=== PATIENT | female | born 1945 | race Caucasian/White ===

== ENCOUNTER → 2023-05-08 18:25 | Outpatient (REF) | payer OTHER, SELFPAY | LOC: WDC 18:25 | PROVIDERS: ATTENDING PHYSICIAN Nurse Practitioner Adult Health | DX: Z12.31 Encounter for screening mammogram for malignant neoplasm of breast (principal) | CPT/HCPCS: 77063; 77067 ==

== ENCOUNTER → 2023-05-21 10:06 | Outpatient (REF) | payer OTHER, SELFPAY | LOC: WDC 10:06 | PROVIDERS: ATTENDING PHYSICIAN Nurse Practitioner Adult Health | DX: R92.8 Other abnormal and inconclusive findings on diagnostic imaging of breast (principal) | CPT/HCPCS: 76642 ==

== ENCOUNTER 2023-07-27 13:36 | Emergency (ER) | payer OTHER, SELFPAY ==
[2023-07-27 13:46] VITALS: BP 146/81
[2023-07-27 15:54] VITALS: BMI 28.5
--- NOTE | 2023-07-27 15:59 | ED.GENMED ---
History of Present Illness
General
Chief Complaint: Numbness
Source: patient
Exam Limitations: none
Time Seen by Provider: 07/27/23 15:11
Nursing documentation reviewed up to this point in time: agreed with
Travel History
Have you had any contact with someone who has COVID-19?: No
Do you have any symptoms of coronavirus? Fever > 100 degrees, chills, cough, shortness of breath, sore throat, loss of taste or smell, muscle aches, or headache?: No
History of Present Illness
History of Present Illness:
Patient is a 78-year-old female presents to the ER for evaluation of multiple complaints. Patient complains of intermittent sharp pains/numbness in her left lower leg for months yesterday however she noticed constant numbness in her right lower leg
which is why she came to the ER. She also reports for the past several months has been intermittently short of breath and notices intermittent twinges of chest pain. She concepcion not been evaluated by her primary care physician for these complaints. She
does have a history of hyperlipidemia and has been on cholesterol medicine. Patient reports she has been on this medicine for years.
Past History
Past History
ED Past Medical History: Hypercholesterolemia and Other (PNA, Chronic Bronchitis, Suspected MS)
ED Past Surgical History: None
Social History
Tobacco: Non-smoker
Alcohol: None
Personal:
Living: with family
Review of Systems
Review of Systems
Allergies reviewed?: Yes
All Other Systems: ROS reviewed and negative except as documented in HPI and ROS
Constitutional: Reports no symptoms; Denies fever, fatigue or chills
Respiratory: Reports trouble breathing (denies now )
Cardiac: Reports chest pain (denies now )
ABD/GI: Reports no symptoms
: Reports no symptoms
Musculoskeletal: Reports no symptoms
Skin: Reports no symptoms
Neurological: Reports no symptoms
Psychiatric: Reports no symptoms
Phy Exam
General Physical Exam
General Presentation: well appearing
General age: appears stated age
General Skin: warm and dry
General Habitus: normal
General Mental: alert
General Hydration: appears well hydrated
Cardiovascular Exam
Cardiovascular Exam: regular rate/rhythm, no murmur and normal peripheral pulses
Pulmonary Exam
Pulmonary Exam: lungs clear and no respiratory distress
Musculoskeletal Exam
Musculoskeletal Exam: full ROM and other ( no obvious lower extremity mild non specific tenderness to left calf region strong pulses to b/l l/e with intact sensation no obvious swelling to legs no erythema full ROM to legs )
Skin Exam
Skin Exam: normal color and warm/dry
Psychiatric Exam
Psychiatric Exam: normal mood/affect
Course
Orders/Labs/Results
Orders:
Orders
07/27/23 15:55
Complete Blood Count/With Diff Urgent
Comprehensive Metabolic Panel Urgent
Pro-BNP [NT-proBNP] Urgent
Troponin I Urgent
07/27/23 15:59
Chest [CR Chest - 2 Views ] Urgent
Comment:
Reason For Exam: sob
Venous Doppler Lwr Ext Bilat [US Periph Venous LOWER Ext Matthew] Urgent
Comment:
Reason For Exam: pain tinging
07/27/23 17:21
Electrocardiogram (*1) Stat
Reason for Study: Other
Other Reason for Exam: chest pain
EKG- Treatment ONCE
Abnormal Lab Results
07/27/23
15:55
WBC 4.5 L 10^3/uL
(4.8-10.8)
RBC 4.16 L 10^6/uL
(4.20-5.40)
MCH 32.9 H pg
(27.0-31.0)
MPV 10.5 H fL
(7.4-10.4)
Monocytes % 13.3 H %
(1.7-9.3)
BUN 19 H mg/dl
(7-17)
07/27/23 15:55
07/27/23 15:55
Vital Signs
Initial and Last Documented VS:
Initial Vital Signs
Temp Pulse Resp BP Pulse Ox
98.7 F 84 16 146/81 98
07/27/23 13:46 07/27/23 13:46 07/27/23 13:46 07/27/23 13:46 07/27/23 13:46
Last Documented Vital Signs
Temp Pulse Resp BP Pulse Ox
98.7 F 69 17 135/117 98
07/27/23 13:46 07/27/23 16:28 07/27/23 16:28 07/27/23 17:20 07/27/23 16:28
MDM/Problems Addressed
MDM/Problems Addressed:
Patient is a 78-year-old female who presents for a variety of complaints which are not necessarily new. She has had intermittent twinges of pain in the left lower leg with intermittent numbness tingling sensation yesterday however she noticed some
discomfort and intermittent tingling in her right leg which is a prompted her to come to the ER today. She was concerned about clot. This no obvious swelling on exam normal strong pulses normal sensation ultrasounds are negative. When asked
patient reports she has had mild intermittent shortness of breath over the past several months along with twinges of intermittent mild chest pain. She is in no acute distress and has no history of cardiac disease. She is well-appearing vital signs
stable nontachycardic nontachypneic nonhypoxic lungs are clear no acute findings on chest x-ray. No recent fever chills she is afebrile here with a normal white count stable hemoglobin and normal chemistries. I did check troponin and BNP for
complains of intermittent shortness breath chest pain for months however these are negative. As documented she has no cardiac history but does believe she may have seen [place] [facility] years ago will have patient follow-up again with
cardiology. There is no acute concerning findings here in the ER workup. EKG normal sinus rhythm left bundle branch block patient has a history of left bundle branch block seen on previous EKG. She has no risk factors for DVT and with negative
ultrasounds no risk factors and no clinical symptoms or vital signs and physical exam consistent with PE we will hold off any D-dimer. She has had these intermittent for months. She is well-appearing I did review with patient the importance of
logan f/ u with family doctor .
1843: Patient was discharged home previously but radiology made me aware that there is fullness in the right infra hilar region which is nonspecific follow-up CAT scan is recommended. PT notified of ct findings and d/c w/ pt that CT is recommended
and to f/u w/ her doctor.
Chronic conditions affecting care:
high cholesterol
*Radiology
Radiology exam reviewed: radiology read reviewed
*Pulse Oximetry
Patient hypoxic: no
*Critical Care Note
Total Time (30-74mins, 75-104mins- exclusive of procedures): Not Applicable
ED Attending Note
-
Portions of this chart may have been created with voice recognition software.� Occasional wrong word or��sound alike� substitutions may have occurred due to the inherent limitations of voice recognition software.
Discharge Plan
Departure
Patient Disposition: Home (Routine Discharge)
Date of Disposition: 07/27/23
Time of Disposition: 17:13
Patient with high blood pressure during this ER visit?: Yes
Condition: Fair
Covid-19: Not Applicable
Discharge Problem:
paresthesias
Instructions: Paresthesia (DC), BLOOD PRESSURE
Prescriptions:
No Action
atorvastatin 10 MG tablet
10 mg PO DAILY
ascorbic acid (vitamin C) 500 MG capsule
500 mg PO DAILY
buexlvws-[id number]-zhnj fum-folic ac 1 EACH tablet
1 ea PO DAILY
zinc Tablet,Chewable
1 tab PO DAILY
lutein 40 mg Capsule
40 mg PO DAILY
Sutab 1.479-0.188- 0.225 gram Tablet
0 tab PO PER PKG DIR
Vitamin D3
1 tab PO DAILY
prednisone 20 mg tablet
40 mg PO DAILY Qty: 8 0RF
Referrals:
Han Bush CRNP [Family Provider] -
Yonathan Bolivar MD [Active] -
Activity Restrictions/Additional Instructions:
As discussed please follow-up with your family doctor for further evaluation of intermittent numbness and tingling to legs and intermittent discomfort to the legs. Also as discussed please follow-up with cardiology give them a call on Sunday to get
an an appointment for reevaluation of your intermittent shortness of breath and chest pain.
Return if any worsening of symptoms.
Interventions
Interventions:
*Risk Screen - Suicide Last Done: 07/27/23 13:46
*General Assessment Last Done: 07/27/23 13:46
*Neglect/Abuse Screening Last Done: 07/27/23 13:46
ED- Fall Risk Assessment Last Done: 07/27/23 15:53
*Nursing Disposition Last Done: 07/27/23 17:44
ED- Neurological Assessment Last Done: 07/27/23 15:52
Discharge Date and Time
Discharge Date/Time: 07/27/23 17:45
Print Language: KAZAKH
[2023-07-27 16:00] VITALS: BP 90/67
[2023-07-27 16:15] LABS: % Basophils 1.6 % (0-2); % Eosinophils 3.6 % (0-6); % Immature Granulocytes 0.2 % (0-0.5); % Lymphocytes 34.4 % (20.5-51.1); % Monocytes 13.3 % (1.7-9.3); % Neutrophils 46.9 % (42.2-75.2); Absolute Basophils 0.1 10^3/uL (0-0.2); Absolute Eosinophils 0.2 10^3/uL (0-0.7); Absolute Lymphocytes 1.5 10^3/uL (1.2-3.4); Absolute Monocytes 0.6 10^3/uL (0.1-0.6); Absolute Neutrophils 2.1 10^3/uL (1.4-6.5); Hematocrit 40.3 % (37.0-47.0); Hemoglobin 13.7 g/dL (12.0-16.0); Mean Corpuscular Hgb 32.9 pg (27.0-31.0); Mean Corpuscular Volume 96.9 fL (81.0-99.0); Mean Platelet Volume 10.5 fL (7.4-10.4); Nucleated Red Blood Cells % 0 %; Platelet Count 226 10^3/uL (130-400); Red Blood Cell Count 4.16 10^6/uL (4.20-5.40); Red Cell Dist. Width 12.8 % (11.5-14.5); White Blood Cell Count 4.5 10^3/uL (4.8-10.8)
[2023-07-27 16:19] LABS: ALT (SGPT) 20 U/L (0-35); AST (SGOT) 32 U/L (14-36); Albumin 4.2 g/dl (3.5-5.0); Alkaline Phosphatase 92 U/L (38-126); Blood Urea Nitrogen 19 mg/dl (7-17); Calcium 9.7 mg/dl (8.4-10.2); Carbon Dioxide 25 mmol/L (22-30); Chloride 106 mmol/L (98-107); Estimated Creatinine Clearance 49 ml/min; Glucose 92 mg/dl (70-99); Potassium 4.2 mmol/L (3.5-5.1); Sodium 139 mmol/L (135-145); Total Bilirubin 0.9 mg/dl (0.2-1.3); Total Protein 6.9 g/dl (6.3-8.2); eGFR > 60.00
[2023-07-27 16:29] LABS: NT-proBNP 242 pg/ml; Troponin I < 0.012 ng/ml
[2023-07-27 17:20] VITALS: BP 135/117
== END 2023-07-27 17:45 | disposition home or self-care (01) ==
LOC: EMR 13:36
PROVIDERS: Nurse Practitioner; EMERGENCY PHYSICIAN Emergency Medicine; FAMILY PHYSICIAN Nurse Practitioner Adult Health
DX: R20.2 Paresthesia of skin (principal); M79.605 Pain in left leg; M79.604 Pain in right leg; E78.00 Pure hypercholesterolemia, unspecified
CPT/HCPCS: 99285; 71046; 80053; 83880; 84484; 85025; 93005; 93970

== ENCOUNTER → 2023-08-09 13:05 | Outpatient (REF) | payer OTHER, SELFPAY | LOC: RAD 13:05 | PROVIDERS: ATTENDING PHYSICIAN Nurse Practitioner Adult Health | DX: J84.10 Pulmonary fibrosis, unspecified (principal); R93.89 Abnormal findings on diagnostic imaging of other specified body structures | CPT/HCPCS: 71250 ==

== ENCOUNTER → 2023-10-29 09:05 | Outpatient (REF) | payer OTHER, SELFPAY ==
[2023-10-29 11:03] LABS: % Basophils 1.2 % (0-2); % Eosinophils 5.7 % (0-6); % Immature Granulocytes 0.2 % (0-0.5); % Lymphocytes 48.4 % (20.5-51.1); % Monocytes 12.8 % (1.7-9.3); % Neutrophils 31.7 % (42.2-75.2); Absolute Basophils 0.1 10^3/uL (0-0.2); Absolute Eosinophils 0.2 10^3/uL (0-0.7); Absolute Monocytes 0.5 10^3/uL (0.1-0.6); Absolute Neutrophils 1.3 10^3/uL (1.4-6.5); Hematocrit 39.5 % (37.0-47.0); Hemoglobin 13.4 g/dL (12.0-16.0); Mean Corp Hgb Conc. 33.9 g/dL (33.0-37.0); Mean Corpuscular Hgb 32.7 pg (27.0-31.0); Mean Corpuscular Volume 96.3 fL (81.0-99.0); Nucleated Red Blood Cells % 0 %; Platelet Count 225 10^3/uL (130-400); Red Cell Dist. Width 12.5 % (11.5-14.5); White Blood Cell Count 4.1 10^3/uL (4.8-10.8)
[2023-10-29 11:51] LABS: ALT (SGPT) 24 U/L (0-35); AST (SGOT) 31 U/L (14-36); Albumin 4.2 g/dl (3.5-5.0); Alkaline Phosphatase 89 U/L (38-126); Blood Urea Nitrogen 16 mg/dl (7-17); Calcium 9.3 mg/dl (8.4-10.2); Carbon Dioxide 27 mmol/L (22-30); Chloride 107 mmol/L (98-107); Glucose 98 mg/dl (70-99); HDL Cholesterol 56 mg/dl; LDL Cholesterol, Calculated 91 mg/dl; Potassium 4.1 mmol/L (3.5-5.1); Sodium 141 mmol/L (135-145); Total Bilirubin 0.8 mg/dl (0.2-1.3); Total Cholesterol 165 mg/dl (50-199); Total Protein 6.6 g/dl (6.3-8.2); Triglyceride 90 mg/dl (10-149); Very Low Density Lipoprotein 18 mg/dl (0-30); eGFR > 60.00
== END ==
LOC: REG 09:05
PROVIDERS: ATTENDING PHYSICIAN Nurse Practitioner Adult Health
DX: E78.00 Pure hypercholesterolemia, unspecified (principal); J44.9 Chronic obstructive pulmonary disease, unspecified
CPT/HCPCS: 36415; 80053; 80061; 85025

== ENCOUNTER → 2023-11-27 12:52 | Outpatient (REF) | payer OTHER, SELFPAY | LOC: PET 12:52 | PROVIDERS: ATTENDING PHYSICIAN Internal Medicine Cardiovascular Disease | DX: R06.00 Dyspnea, unspecified (principal) | CPT/HCPCS: 78431; A9555; J2785 ==

== ENCOUNTER → 2023-12-07 13:48 | Outpatient (REF) | payer OTHER, SELFPAY | LOC: RCS 13:48 | PROVIDERS: ATTENDING PHYSICIAN Internal Medicine Cardiovascular Disease; FAMILY PHYSICIAN Nurse Practitioner Adult Health | DX: R06.00 Dyspnea, unspecified (principal); I44.7 Left bundle-branch block, unspecified | CPT/HCPCS: 93306 ==

== ENCOUNTER → 2024-01-10 12:36 | Outpatient (REF) | payer OTHER, SELFPAY | LOC: RAD 12:36 | PROVIDERS: ATTENDING PHYSICIAN Nurse Practitioner Adult Health | DX: Z78.0 Asymptomatic menopausal state (principal) | CPT/HCPCS: 77080 ==

== ENCOUNTER → 2024-06-23 14:48 | Outpatient (REF) | payer OTHER, SELFPAY | LOC: WDC 14:48 | PROVIDERS: ATTENDING PHYSICIAN Nurse Practitioner Adult Health | DX: Z12.31 Encounter for screening mammogram for malignant neoplasm of breast (principal) | CPT/HCPCS: 77063; 77067 ==

== ENCOUNTER → 2024-12-19 11:17 | Outpatient (REF) | payer OTHER, SELFPAY ==
[2024-12-19 11:47] LABS: Hematocrit 41.6 % (37.0-47.0); Hemoglobin 13.6 g/dL (12.0-16.0); Mean Corp Hgb Conc. 32.7 g/dL (33.0-37.0); Mean Corpuscular Volume 97.9 fL (81.0-99.0); Platelet Count 236 10^3/uL (130-400); Red Cell Dist. Width 12.7 % (11.5-14.5)
[2024-12-19 12:13] LABS: ALT (SGPT) 21 U/L (0-35); AST (SGOT) 28 U/L (14-36); Albumin 4.4 g/dl (3.5-5.0); Alkaline Phosphatase 87 U/L (38-126); Blood Urea Nitrogen 16 mg/dl (7-17); Calcium 9.6 mg/dl (8.4-10.2); Carbon Dioxide 30 mmol/L (22-30); Chloride 106 mmol/L (98-107); Glucose 93 mg/dl (70-99); HDL Cholesterol 61 mg/dl; LDL Cholesterol, Calculated 94 mg/dl; Potassium 4.0 mmol/L (3.5-5.1); Sodium 142 mmol/L (135-145); Total Protein 7.4 g/dl (6.3-8.2); Very Low Density Lipoprotein 15 mg/dl (0-30); eGFR > 60.00
[2024-12-19 12:41] LABS: Nucleated Red Blood Cells % 0 %
== END ==
LOC: REG 11:17
PROVIDERS: ATTENDING PHYSICIAN Nurse Practitioner Adult Health
DX: Z00.00 Encounter for general adult medical examination without abnormal findings (principal); E78.00 Pure hypercholesterolemia, unspecified; R79.89 Other specified abnormal findings of blood chemistry
CPT/HCPCS: 36415; 80053; 80061; 85025

== ENCOUNTER → 2024-12-29 16:41 | Outpatient (REF) | payer OTHER, SELFPAY | LOC: RAD 16:41 | PROVIDERS: ATTENDING PHYSICIAN Nurse Practitioner Family; FAMILY PHYSICIAN Nurse Practitioner Adult Health | DX: R06.00 Dyspnea, unspecified (principal) | CPT/HCPCS: 71046 ==

== ENCOUNTER 2025-03-07 15:02 | Emergency (ER) | payer OTHER, SELFPAY ==
[2025-03-07 15:03] VITALS: BP 167/80
--- NOTE | 2025-03-07 16:49 | ED.GENMED ---
History of Present Illness
General
Chief Complaint: Abnormal Lab Value
Time Seen by Provider: 03/07/25 16:04
History of Present Illness
History of Present Illness:
Patient is a 79-year-old woman who is otherwise healthy presenting to the emergency department with abnormal EKG. Patient states for 1 year she has had pinprick sensations throughout her chest, palpitations and shortness of breath which she
attributes to her COPD. She initially told nursing that she had dizziness so declined that to me. She called her welding inspector who told her to follow-up cardiology. However her appointment is now scheduled for March 23 so she was advised by
the urgent care. When she arrived to the urgent care a plain EKG. There was some concern so told her to come to the emergency department for further evaluation. At this time patient has no complaints. She is never had exertional chest pain. No
pleuritic pain. No nausea vomiting diaphoresis. No long car rides plane rides hemoptysis or history of blood clots.
Past History
Past History
ED Past Medical History: Hypercholesterolemia and Other (PNA, Chronic Bronchitis, Suspected MS)
ED Past Surgical History: None
Social History
Tobacco: Non-smoker
Alcohol: None
Personal:
Living: with family
Phy Exam
Physical Exam
Physical Exam:
GENERAL: in no acute distress
HEENT: normocephalic, extraocular movements intact, moist oral mucosa
NECK: normal inspection
RESPIRATORY: no respiratory distress, clear to auscultation bilaterally
CARDIOVASCULAR: regular rate and rhythm
ABDOMEN/: soft, non-distended, non-tender to palpation, no rebound or guarding
EXTREMITIES: non-tender, no edema/swelling
NEUROLOGIC: awake and alert, moves all extremities
SKIN: warm
Course
Orders/Labs/Results
Orders:
Orders
03/07/25 15:07
EKG [Electrocardiogram (*1)] Urgent
Reason for Study: Abnormal EKG
EKG- Treatment ONCE
03/07/25 16:54
Basic Metabolic Panel Urgent
Complete Blood Count/With Diff Urgent
Magnesium Urgent
Troponin I Urgent
Abnormal Lab Results
03/07/25
16:54
WBC 3.8 L 10^3/uL
(4.8-10.8)
RBC 3.95 L 10^6/uL
(4.20-5.40)
MCH 31.9 H pg
(27.0-31.0)
MPV 10.5 H fL
(7.4-10.4)
Absolute Lymphs (auto) 1.1 L 10^3/uL
(1.2-3.4)
Monocytes % 14.7 H %
(1.7-9.3)
03/07/25 16:54
03/07/25 16:54
Vital Signs
Initial and Last Documented VS:
Initial Vital Signs
Temp Pulse Resp BP Pulse Ox
97.8 F 86 16 167/80 98
03/07/25 15:03 03/07/25 15:03 03/07/25 15:03 03/07/25 15:03 03/07/25 15:03
Last Documented Vital Signs
Temp Pulse Resp BP Pulse Ox
97.8 F 71 18 135/68 96
03/07/25 15:03 03/07/25 17:00 03/07/25 17:00 03/07/25 17:00 03/07/25 17:00
MDM/Problems Addressed
Differential Diagnosis Includes:
Patient is a 79-year-old presenting to the emergency room with abnormal EKG as well as 1 year of pinprick sensation to her chest, palpitations. On arrival vitals are notable for hypertension and exam is otherwise reassuring. Differential consist
of metabolic derangement versus cardiac arrhythmia versus atypical ACS versus COPD exacerbation though less likely. Will check blood work. Magnesium and troponin. EKG per my interpretation normal sinus rhythm.
*Pulse Oximetry
SaO2: 96
Oxygen Mode of Delivery: Room air
Patient hypoxic: no
*Critical Care Note
Total Time (30-74mins, 75-104mins- exclusive of procedures): Not Applicable
Update Note
Update Note:
Blood work reassuring. Patient remains asymptomatic. Will discharge at this time with cardiology follow-up.
ED Attending Note
-
Portions of this chart may have been created with voice recognition software.� Occasional wrong word or��sound alike� substitutions may have occurred due to the inherent limitations of voice recognition software.
Discharge Plan
Departure
Patient Disposition: Home (Routine Discharge)
Date of Disposition: 03/07/25
Time of Disposition: 17:39
Patient with high blood pressure during this ER visit?: Yes
Discharge Problem:
Palpitations
Instructions: Palpitations - ED (DC)
Prescriptions:
No Action
atorvastatin 10 MG tablet
10 mg PO DAILY
ascorbic acid (vitamin C) 500 MG capsule
500 mg PO DAILY
bumktiml-giw-ksvm fum-folic ac 1 EACH tablet
1 ea PO DAILY
zinc Tablet,Chewable
1 tab PO DAILY
lutein 40 mg Capsule
40 mg PO DAILY
Sutab 1.479-0.188- 0.225 gram Tablet
0 tab PO PER PKG DIR
Vitamin D3
1 tab PO DAILY
prednisone 20 mg tablet
40 mg PO DAILY Qty: 8 0RF
Referrals:
UNKNOWN - PT NOT,INTERVIEWE [Family Provider]
Activity Restrictions/Additional Instructions:
Thank You for choosing [facility].
It was a pleasure meeting you and taking part in your care.
You were seen in the Emergency Department today for palpitations and pinprick sensation. While you were here we performed blood work, which was reassuring.
We would like for you to follow up with your air traffic systems technician for further evaluation. If you experience fever, worsening of your symptoms, or develop any other new or concerning symptoms, please return to the Emergency Department immediately.
Please see the attached sheet for additional information.
Interventions
Interventions:
*Risk Screen - Suicide Last Done: 03/07/25 15:03
*General Assessment Last Done: 03/07/25 16:54
*Neglect/Abuse Screening Last Done: 03/07/25 15:03
*ED COVID-19 Vaccine History Last Done: 03/07/25 16:54
*ED Influenza Vaccine History Last Done: 03/07/25 16:54
[facility] Risk Assessment Tool Last Done: 03/07/25 16:54
Discharge Date and Time
Print Language: MALTESE
[2025-03-07 16:54] VITALS: BP 110/64
[2025-03-07 17:00] VITALS: BP 135/68
[2025-03-07 17:17] LABS: Hematocrit 37.4 % (37.0-47.0); Hemoglobin 12.6 g/dL (12.0-16.0); Mean Corp Hgb Conc. 33.7 g/dL (33.0-37.0); Mean Corpuscular Volume 94.7 fL (81.0-99.0); Nucleated Red Blood Cells % 0 %; Platelet Count 217 10^3/uL (130-400); Red Cell Dist. Width 12.5 % (11.5-14.5)
[2025-03-07 17:27] LABS: Blood Urea Nitrogen 17 mg/dl (7-17); Calcium 9.2 mg/dl (8.4-10.2); Carbon Dioxide 27 mmol/L (22-30); Chloride 107 mmol/L (98-107); Glucose 93 mg/dl (70-99); Magnesium 2.3 mg/dl (1.6-2.3); Potassium 4.3 mmol/L (3.5-5.1); Sodium 139 mmol/L (135-145); eGFR > 60.00
[2025-03-07 17:36] LABS: Troponin I < 0.012 ng/ml
== END 2025-03-07 18:08 | disposition home or self-care (01) ==
LOC: EMR 15:02
PROVIDERS: EMERGENCY PHYSICIAN Student in an Organized Health Care Education/Training Program; FAMILY PHYSICIAN Nurse Practitioner Adult Health
DX: R00.2 Palpitations (principal); E78.00 Pure hypercholesterolemia, unspecified; J44.89 Other specified chronic obstructive pulmonary disease
CPT/HCPCS: 99284; 80048; 83735; 84484; 85025; 93005